=== PATIENT | female | born 1990 | race African-American/Black ===

== ENCOUNTER 2017-04-11 19:46 | Emergency (ER) | payer SELFPAY ==
[2017-04-11] MEDS ORDERED: KETOROLAC TROMETHAMINE 60 MG/2 ML VIAL IM ONE (19:55)
[2017-04-11] MEDS ORDERED: ORPHENADRINE CITRATE 100 MG TAB PO SCH (20:00)
[2017-04-11 20:06] VITALS: BP 122/53
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
== END 2017-04-11 20:30 | disposition home or self-care (01) ==
LOC: ED 19:46
DX: S39.012A Strain of muscle, fascia and tendon of lower back, initial encounter (principal); V40.3XXA Unspecified car occupant injured in collision with pedestrian or animal in nontraffic accident, initial encounter; Y93.9 Activity, unspecified; Y99.9 Unspecified external cause status; M94.0 Chondrocostal junction syndrome [Tietze]
CPT/HCPCS: 71020; 72100; 81025; 99283